=== PATIENT | female | born 1970 | race Caucasian/White ===

== ENCOUNTER 2019-07-17 19:42 | Emergency (ER) | payer MEDICAID ==
[~2019-07-17] VITALS: Ht 160 cm; Wt 54.5 kg
[~2019-07-17 19:42] MED LIST: NO HOME MEDS
[2019-07-17] MEDS ORDERED: morphine 2 MG/ML inj. syringe IV ONE (20:30)
[2019-07-17] MEDS ORDERED: LIDOcaine 2% 10ml TOPICAL JELLY (Urojet) MM ONE (20:40)
--- NOTE | 2019-07-17 20:51 | NUR ---
CHAPERONED AND ASSISTED ZOILA BROCK FOR UROJET APPLICATION AND PT CLEAN UP SECONDARY TO BOWEL MOVEMENT
[2019-07-17] MEDS ORDERED: LIDOcaine 2% 10ml TOPICAL JELLY (Urojet) TP ONE (21:20)
--- NOTE | 2019-07-17 21:43 | NUR ---
CHAPERONED AND ASSISTED ZOILA BROCK WITH SHARP PLACEMENT
[2019-07-17 22:54] LABS: CLARITY,URINE TURBID (Clear); COLOR,URINE YELLOW (Yellow); GLUCOSE, URINE NEGATIVE (Neg); KETONES,URINE NEGATIVE (Neg); LEUKOCYTE ESTERASE ,URINE LARGE (Neg); NITRITES, URINE POSITIVE (Neg); OCCULT BLOOD,URINE LARGE (Neg); PH,URINE 7.5 (4.8-8.0); PROTEIN,URINE 30 mg/dl (Neg); UROBILINOGEN,URINE 0.2 E.U/dL (0.2-1.0)
[2019-07-17 22:59] LABS: UA COLLECTION TYPE FOLEY CATH
[2019-07-17 23:01] LABS: WBC,URINE TNTC /HPF (0-4)
[2019-07-17 23:02] LABS: AMORPHOUS PHOSPHATES 3+; BACTERIA,URINE 3+ /HPF (Neg); RBC,URINE 50-100 /HPF (0-2); SQUAMOUS EPITHELIAL CELL,UR FEW /LPF (FEW); WBC CLUMPS,URINE MODERATE /HPF (NEGATIVE)
--- NOTE | 2019-07-17 23:06 | NUR ---
~1000ml urine output from horne cath
[2019-07-17] MEDS ORDERED: SULF1TAB49 PO (23:12)
[2019-07-17] MEDS ORDERED: sulfamethoxazole/trimethoprim DS (800/160mg) tablet PO ONE (23:20)
[2019-07-17 23:49] VITALS: BP 102/65
== END 2019-07-17 23:40 | disposition home or self-care (01) ==
LOC: ER 19:43
DX: S37.30XA Unspecified injury of urethra, initial encounter (principal); T83.098A Other mechanical complication of other urinary catheter, initial encounter; N39.0 Urinary tract infection, site not specified; Z87.820 Personal history of traumatic brain injury; Z88.0 Allergy status to penicillin; Z88.8 Allergy status to other drugs, medicaments and biological substances; X58.XXXA Exposure to other specified factors, initial encounter; Y93.89 Activity, other specified; Y92.89 Other specified places as the place of occurrence of the external cause; Y99.9 Unspecified external cause status
CPT/HCPCS: 51702; 81001; 87077; 87088; 87186; 96374; 99285; J2270

== ENCOUNTER 2019-11-05 21:44 | Inpatient (IN) | payer MEDICAID ==
[~2019-11-05] VITALS: Ht 160 cm; Wt 50.0 kg
[2019-11-05 22:40] LABS: BASOPHILS % (AUTO) 0.5 % (0-1); EOSINOPHILS # (AUTO) 0.1 X10'3 (0-0.9); EOSINOPHILS % (AUTO) 0.5 % (0-6); HEMOGLOBIN 13.1 g/dl (12.0-16.0); LYMPHOCYTES # (AUTO) 3.5 X10'3 (1.1-4.8); LYMPHOCYTES % (AUTO) 16.3 % (21-51); MEAN CORPUSCULAR HEMOGLOBIN 29.1 PG (27.0-31.0); MEAN CORPUSCULAR HGB CONC 32.7 g/dL (33.0-36.5); MEAN CORPUSCULAR VOLUME 88.8 FL (78-98); MEAN PLATELET VOLUME 6.8 FL (7.4-10.4); MONOCYTES # (AUTO) 0.3 X10'3 (0-0.9); MONOCYTES % (AUTO) 1.4 % (2-12); NEUTROPHILS # (AUTO) 17.2 X10'3 (1.8-7.7); NEUTROPHILS % (AUTO) 81.3 % (42-75); PLATELET COUNT 638 X10'3 (140-440); RED CELL DISTRIBUTION WIDTH 14.8 % (11.5-14.5); WHITE BLOOD COUNT 21.2 X10'3 (4.5-11.0)
[2019-11-05 22:41] LABS: BASOPHILS # (AUTO) 0.1 X10'3 (0-0.2)
[2019-11-05 22:43] LABS: ALANINE AMINOTRANSFERASE 32 U/L (12-78); ALBUMIN 2.8 G/DL (3.4-5.0); ALBUMIN/GLOBULIN RATIO 0.5 (1.1-1.5); ALKALINE PHOSPHATASE 201 IU/L (46-116); ANION GAP 10 (8-16); ASPARTATE AMINO TRANSFERASE 20 U/L (10-37); BILIRUBIN,TOTAL 0.4 MG/DL (0.1-1.0); BLOOD UREA NITROGEN 12 MG/DL (7-18); BUN/CREATININE RATIO 13.6 (6.6-38.0); CALCIUM 8.9 MG/DL (8.5-10.1); CHLORIDE 101 MMOL/L (99-107); CREATININE 0.88 MG/DL (0.40-0.90); GLUCOSE 95 MG/DL (70-104); LIPASE 183 U/L (73-393); POTASSIUM 4.4 MMOL/L (3.5-5.1); SODIUM 133 MMOL/L (135-145); TOTAL CARBON DIOXIDE 21.8 MMOL/L (24-32); TOTAL PROTEIN 8.5 G/DL (6.4-8.2); eGFR 68 ML/MIN
[2019-11-05 22:53] LABS: URINE HCG NEGATIVE (NEG)
[2019-11-05] MEDS ORDERED: CefTRIAXone/D5W-Rocephin 1gm 50 ML IV ONE (22:55)
[2019-11-05] MEDS ORDERED: normal saline 1000ML IV soln IVB ONE (22:55)
[2019-11-05 22:56] LABS: CLARITY,URINE CLOUDY (Clear); COLOR,URINE RED (Yellow); GLUCOSE, URINE NEGATIVE (Neg); KETONES,URINE NEGATIVE (Neg); LEUKOCYTE ESTERASE ,URINE MODERATE (Neg); NITRITES, URINE NEGATIVE (Neg); OCCULT BLOOD,URINE LARGE (Neg); PH,URINE 7.5 (4.8-8.0); PROTEIN,URINE 100 mg/dl (Neg)
[2019-11-05 22:58] LABS: PLATELET ESTIMATE INCREASED; TOTAL CELLS COUNTED 100
[2019-11-05 22:59] LABS: UA COLLECTION TYPE STRAIGHT CATH
[2019-11-05 23:03] LABS: BACTERIA,URINE 2+ /HPF (Neg); RBC,URINE TNTC /HPF (0-2); SQUAMOUS EPITHELIAL CELL,UR FEW /LPF (FEW)
[2019-11-05] MEDS ORDERED: iohexol 300mg/ml 100ml inj. ONE (23:04)
[2019-11-05 23:09] LABS: MAGNESIUM 2.3 MG/DL (1.5-2.4)
[2019-11-06] VITALS (19 sets, daily range): BP systolic 74–117; BP diastolic 39–59
[2019-11-06] MEDS ORDERED: magnesium hydroxide 30ml (MOM) UD suspension PO PRN (00:25)
[2019-11-06] MEDS ORDERED: HYDROcodone/acetaminophen 5mg/325mg tablet PO PRN (00:25)
[2019-11-06] MEDS ORDERED: acetaminophen 325mg tablet PO PRN ×2 (00:25)
[2019-11-06] MEDS ORDERED: morphine 2 MG/ML inj. syringe IV PRN ×2 (00:25→18:30)
[2019-11-06] MEDS ORDERED: mag hydrox/Alum hydrox/simeth 30ml oral suspension PO PRN (00:25)
[2019-11-06] MEDS ORDERED: ondansetron/PF 4mg/2ml inj IV PRN ×2 (00:25→18:30)
[2019-11-06] MEDS: normal saline 1000ml 1,000 ML IV SCH ×3 (01:13→14:11)
[2019-11-06] MEDS ORDERED: ketorolac trometh. 30mg/ml inj. IV ONE (01:15)
--- NOTE | 2019-11-06 02:10 | NUR ---
PATIENT ADMITTED TO ROOM 356B FROM ER FOR ACUTE PYELONEPHRITIS. PLACED COMFORTABLE IN BED. VITAL SIGNS TAKEN AND RECORDED.
--- NOTE | 2019-11-06 06:30 | NUR ---
Patient report given, questions answered & plan of care reviewed with REHANA BROCK.
--- NOTE | 2019-11-06 06:33 | NUR ---
Patient in room JAI 356B. I have received report from LESLYE GAVIN RN and had the opportunity to ask questions and assume patient care.
[2019-11-06] MEDS ORDERED: normal saline 1000ml 1,000 ML IV ONE ×3 (08:05→20:05)
[2019-11-06] MEDS ORDERED: potassium CL 10mEq/100ml bag 100 ML IV PRN (09:15)
[2019-11-06] MEDS ORDERED: magnesium 4gm in 100ml NS 100 ML IV PRN (09:15)
[2019-11-06] MEDS ORDERED: potassium Cl 20 mEq SR tablet PO PRN ×2 (09:15)
[2019-11-06] MEDS ORDERED: magnesium Cl slow-release 64mg tablet PO PRN (09:15)
[2019-11-06] MEDS ORDERED: CefTRIAXone/D5W-Rocephin 1gm 50 ML IV SCH ×2 (10:00→20:00)
--- NOTE | 2019-11-06 10:00 | NUR ---
reviewed student nurse charting
[2019-11-06 10:38] LABS: PARTIAL THROMBOPLASTIN TIME 31 SECONDS (22-32)
[2019-11-06] MEDS: HYDROcodone/acetaminophen 10/325mg tab PO PRN (11:31)
--- NOTE | 2019-11-06 15:52 | NUR ---
POSITIVE BLOOD CULTURE IN IV START GRAM POSITIVE COCCI IN PAIRS AND CHAINS AT 15 HOURS IN ANAEROBIC BOTTLE, [id number]
[2019-11-06] MEDS ORDERED: fentaNYL/PF 50MCG/1 ML 2ML syringe ONE (16:32)
[2019-11-06] MEDS ORDERED: midazolam 2 mg/2 ml injection ONE (16:32)
[2019-11-06] MEDS ORDERED: iohexol 300 MG/1 ML 50ml polymer ONE (16:33)
[2019-11-06] MEDS ORDERED: proCHLORperazine 10 MG/2 ml inj IV PRN (18:30)
[2019-11-06] MEDS ORDERED: ringers solution, lacted 1,000 ML IV SCH (18:30)
[2019-11-06] MEDS ORDERED: meperidine/PF 25mg/ml syringe IV PRN ×3 (18:30)
[2019-11-06] MEDS ORDERED: morphine 4 MG/ML inj SYRINge IV PRN (18:30)
--- NOTE | 2019-11-06 18:33 | NUR ---
Patient in room JAI 340. I have received report from Alberta BROCK and had the opportunity to ask questions and assume patient care.
[2019-11-06] MEDS ORDERED: sugammadex 200mg/2ml injection IV ONE (18:41)
[2019-11-06] MEDS ORDERED: phenylephrine 10mg/ml inj. ONE (18:44)
[2019-11-06] MEDS ORDERED: neostigmine methylsulfate 1 MG/ML 10ml vial ONE (18:44)
[2019-11-06] MEDS ORDERED: glycopyrrolate 0.2mg/ml inj ONE (18:44)
[2019-11-06] MEDS ORDERED: propofol inj 20 ML IV ONE (18:44)
[2019-11-06] MEDS ORDERED: ondansetron/PF 4mg/2ml inj ONE (18:44)
[2019-11-06] MEDS ORDERED: LIDOcaine 2% (20mg/ml) 5ml vial ONE (18:44)
[2019-11-06] MEDS ORDERED: rocuronium 10mg/ml inj IV ONE (18:44)
[2019-11-06] MEDS ORDERED: dexamethasone sod phosphate 4mg/ml inj. ONE (18:44)
--- NOTE | 2019-11-06 18:46 | NUR ---
Received from OR via , accompanied by Anesthesiologist DR MARIE and report given by Anesthesiolgist. AWAKENS TO VOICE. VITALS STABLE. BP A LITTLE LOW GIVING 500CC FLUID BOLUS PER ANESTHESIA. REGINALD PAIN. SHARP WITH CLEAR URINE.
--- NOTE | 2019-11-06 19:07 | NUR ---
Problems reprioritized. Patient report given, questions answered & plan of care reviewed with DELMY WILSON.
--- NOTE | 2019-11-06 19:10 | NUR ---
POSITIVE BLOOD CULTURE FROM LEFT ARM GRAM POSITIVE COCCI IN PAIRS AND SHORT CHAINS AT 19 HOURS IN AEROBIC BOTTLE, [id number]. DR TIDWELL
--- NOTE | 2019-11-06 19:46 | NUR ---
Report called to receiving nurse. Transferred via BED Belongings . Special Issues communicated to receiving nurse. AWAKE AND ORIENTED. VITALS STABLE. REGINALD PAIN. TO SURGICAL RM 356B AT THIS TIME.
[2019-11-06] MEDS: K and/or MAG REPLACEMENT MC SCH (20:00)
--- NOTE | 2019-11-06 20:00 | NUR ---
Patient in room JAI 356. I have received report from Cecily BROCK and had the opportunity to ask questions and assume patient care.
[2019-11-06] MEDS: cefepime 2g/NS 100ml ADVANTAGE 100 ML IV SCH (21:37)
[2019-11-07] VITALS (9 sets, daily range): BP systolic 74–108; BP diastolic 37–65
[2019-11-07] MEDS ORDERED: nicotine 21mg patch - 24 hr TD SCH (05:30)
[2019-11-07 05:53] LABS: ALBUMIN 1.8 G/DL (3.4-5.0); ANION GAP 9 (8-16); BLOOD UREA NITROGEN 13 MG/DL (7-18); BUN/CREATININE RATIO 17.8 (6.6-38.0); CALCIUM 7.9 MG/DL (8.5-10.1); CHLORIDE 109 MMOL/L (99-107); CREATININE 0.73 MG/DL (0.40-0.90); GLUCOSE 132 MG/DL (70-104); MAGNESIUM 1.9 MG/DL (1.5-2.4); POTASSIUM 4.4 MMOL/L (3.5-5.1); SODIUM 140 MMOL/L (135-145); TOTAL CARBON DIOXIDE 21.6 MMOL/L (24-32); eGFR 85 ML/MIN
[2019-11-07 06:06] LABS: BASOPHILS # (AUTO) 0.1 X10'3 (0-0.2); BASOPHILS % (AUTO) 0.4 % (0-1); EOSINOPHILS % (AUTO) 0 % (0-6); HEMATOCRIT 31.5 % (35.0-45.0); LYMPHOCYTES # (AUTO) 2.3 X10'3 (1.1-4.8); LYMPHOCYTES % (AUTO) 9.1 % (21-51); MEAN CORPUSCULAR HEMOGLOBIN 28.2 PG (27.0-31.0); MEAN CORPUSCULAR HGB CONC 31.6 g/dL (33.0-36.5); MEAN CORPUSCULAR VOLUME 89.3 FL (78-98); MEAN PLATELET VOLUME 7.5 FL (7.4-10.4); MONOCYTES # (AUTO) 1.3 X10'3 (0-0.9); MONOCYTES % (AUTO) 4.9 % (2-12); NEUTROPHILS # (AUTO) 21.9 X10'3 (1.8-7.7); NEUTROPHILS % (AUTO) 85.6 % (42-75); PLATELET COUNT 722 X10'3 (140-440); RED BLOOD COUNT 3.52 X10'6 (4.20-5.60); RED CELL DISTRIBUTION WIDTH 15.1 % (11.5-14.5)
[2019-11-07 06:12] LABS: WHITE BLOOD COUNT 25.6 X10'3 (4.5-11.0)
--- NOTE | 2019-11-07 06:32 | NUR ---
Problems reprioritized. Patient report given, questions answered & plan of care reviewed with Sindy BROCK.
--- NOTE | 2019-11-07 06:32 | NUR ---
Patient in room JAI 356. I have received report from DELMY Jackson and had the opportunity to ask questions and assume patient care.
[2019-11-07 07:40] LABS: PLATELET ESTIMATE INCREASED; TOTAL CELLS COUNTED 100
[2019-11-07] MEDS: K and/or MAG REPLACEMENT MC SCH ×2 (08:00→19:30)
[2019-11-07] MEDS: nicotine 21mg patch - 24 hr TD SCH (08:07)
[2019-11-07] MEDS: cefepime 2g/NS 100ml ADVANTAGE 100 ML IV SCH ×2 (08:07→19:36)
[2019-11-07] MEDS: normal saline 1000ml 1,000 ML IV SCH ×3 (08:13→21:15)
[2019-11-07] MEDS: morphine 2 MG/ML inj. syringe IV PRN ×3 (09:25→21:27)
[2019-11-07] MEDS: VANCOMYCIN 750MG IV in NS 250 ML IV SCH ×2 (12:03→23:20)
--- NOTE | 2019-11-07 13:15 | NUR ---
Pt C/o of IV site redness and itching, SOB and general feeling unwell. suspected reaction to Vancomycin first dose. Stopped infusion and paged Dr Gordon.
[2019-11-07] MEDS ORDERED: diphenhydrAMINE 50 mg/ml inj IV ONE (13:40)
--- NOTE | 2019-11-07 17:00 | NUR ---
Stewart catheter DCed with no complications, pt tolerated procedure well.
--- NOTE | 2019-11-07 18:32 | NUR ---
Problems reprioritized. Patient report given, questions answered & plan of care reviewed with DELMY Jackson.
--- NOTE | 2019-11-07 18:47 | NUR ---
Patient in room JAI 356. I have received report from Sindy BROCK and had the opportunity to ask questions and assume patient care.
[2019-11-08] VITALS: BP 117/70
[2019-11-08] MEDS: morphine 2 MG/ML inj. syringe IV PRN ×4 (04:17→23:08)
[2019-11-08 05:44] LABS: ALBUMIN 1.9 G/DL (3.4-5.0); ANION GAP 10 (8-16); BLOOD UREA NITROGEN 13 MG/DL (7-18); BUN/CREATININE RATIO 17.3 (6.6-38.0); CALCIUM 7.9 MG/DL (8.5-10.1); CHLORIDE 110 MMOL/L (99-107); CREATININE 0.75 MG/DL (0.40-0.90); GLUCOSE 87 MG/DL (70-104); MAGNESIUM 1.9 MG/DL (1.5-2.4); PHOSPHORUS 3.6 MG/DL (2.3-4.5); POTASSIUM 3.8 MMOL/L (3.5-5.1); SODIUM 144 MMOL/L (135-145); TOTAL CARBON DIOXIDE 24.4 MMOL/L (24-32); eGFR 82 ML/MIN
[2019-11-08 05:56] LABS: BASOPHILS # (AUTO) 0.1 X10'3 (0-0.2); BASOPHILS % (AUTO) 0.5 % (0-1); EOSINOPHILS # (AUTO) 0.1 X10'3 (0-0.9); EOSINOPHILS % (AUTO) 0.9 % (0-6); HEMATOCRIT 31.5 % (35.0-45.0); HEMOGLOBIN 10.4 g/dl (12.0-16.0); LYMPHOCYTES # (AUTO) 6.9 X10'3 (1.1-4.8); LYMPHOCYTES % (AUTO) 47.5 % (21-51); MEAN CORPUSCULAR HEMOGLOBIN 29.9 PG (27.0-31.0); MEAN CORPUSCULAR HGB CONC 33.1 g/dL (33.0-36.5); MEAN CORPUSCULAR VOLUME 90.2 FL (78-98); MEAN PLATELET VOLUME 7.2 FL (7.4-10.4); MONOCYTES # (AUTO) 1.5 X10'3 (0-0.9); MONOCYTES % (AUTO) 10.5 % (2-12); NEUTROPHILS # (AUTO) 5.9 X10'3 (1.8-7.7); NEUTROPHILS % (AUTO) 40.6 % (42-75); PLATELET COUNT 795 X10'3 (140-440); RED CELL DISTRIBUTION WIDTH 15.4 % (11.5-14.5); WHITE BLOOD COUNT 14.6 X10'3 (4.5-11.0)
--- NOTE | 2019-11-08 06:16 | NUR ---
Patient in room JAI 356. I have received report from DELMY Jackson and had the opportunity to ask questions and assume patient care.
--- NOTE | 2019-11-08 06:19 | NUR ---
patient stated she had a recent pressure wound on her sacrum/coccyx. Patient has a trapeze bed and is able to turn herself independently. I educated the patient on the importance of turning positions at least every two hours and taking pressure off that area. will continue to monitor
--- NOTE | 2019-11-08 06:41 | NUR ---
Problems reprioritized. Patient report given, questions answered & plan of care reviewed with Sindy BROCK.
[2019-11-08 07:30] VITALS: BP 118/66
[2019-11-08 07:57] LABS: TOTAL CELLS COUNTED 100
[2019-11-08 07:58] LABS: LARGE PLATELETS FEW; PLATELET ESTIMATE INCREASED; TOXIC GRANULATION 1+
[2019-11-08 08:00] VITALS: BP_SYST 113; BP_SYST 119; BP_DIAS 61; BP_DIAS 66
[2019-11-08] MEDS: K and/or MAG REPLACEMENT MC SCH ×2 (08:00→20:00)
[2019-11-08] MEDS: cefepime 2g/NS 100ml ADVANTAGE 100 ML IV SCH (08:15)
[2019-11-08] MEDS: heparin, porcine 5000 units/ml vial SQ SCH ×2 (08:15→20:33)
[2019-11-08] MEDS: nicotine 21mg patch - 24 hr TD SCH (08:16)
[2019-11-08] MEDS: normal saline 1000ml 1,000 ML IV SCH ×2 (08:28→20:33)
[2019-11-08] MEDS: VANCOMYCIN 750MG IV in NS 250 ML IV SCH ×2 (10:54→23:06)
[2019-11-08 11:00] VITALS: BP 113/61
[2019-11-08 18:00] VITALS: BP 120/55
--- NOTE | 2019-11-08 18:05 | NUR ---
Problems reprioritized. Patient report given, questions answered & plan of care reviewed with DELMY Jackson.
--- NOTE | 2019-11-08 18:42 | NUR ---
Patient in room JAI 345. I have received report from Sindy BROCK and had the opportunity to ask questions and assume patient care.
[2019-11-08 20:00] VITALS: BP 120/55
[2019-11-08] MEDS ORDERED: cefepime inj 2 GM in normal saline 100ml IV soln 100 ML IV SCH (20:31)
[2019-11-08] MEDS: lactobacillus rhamnosus 10,000 MMU CELLS/CAPSULE PO SCH (20:34)
[2019-11-08] MEDS ORDERED: VANCOMYCIN LEVEL IV ONE (22:30)
[2019-11-09] VITALS: BP 117/55
--- NOTE | 2019-11-09 06:20 | NUR ---
Patient in room JAI 356B. I have received report from DELMY WILSON and had the opportunity to ask questions and assume patient care.
--- NOTE | 2019-11-09 06:34 | NUR ---
Problems reprioritized. Patient report given, questions answered & plan of care reviewed with Alberta BROCK.
[2019-11-09 07:00] VITALS: BP 116/67
[2019-11-09 07:16] LABS: HEMOGLOBIN 10.4 g/dl (12.0-16.0); MEAN CORPUSCULAR HEMOGLOBIN 29.6 PG (27.0-31.0)
[2019-11-09 07:18] LABS: HEMATOCRIT 31.1 % (35.0-45.0); MEAN CORPUSCULAR HGB CONC 33.3 g/dL (33.0-36.5); MEAN CORPUSCULAR VOLUME 88.9 FL (78-98); PLATELET COUNT 852 X10'3 (140-440); RED CELL DISTRIBUTION WIDTH 14.6 % (11.5-14.5); WHITE BLOOD COUNT 13.5 X10'3 (4.5-11.0)
[2019-11-09 07:49] LABS: ALBUMIN 1.8 G/DL (3.4-5.0); ANION GAP 9 (8-16); BLOOD UREA NITROGEN 10 MG/DL (7-18); BUN/CREATININE RATIO 17.9 (6.6-38.0); CALCIUM 7.8 MG/DL (8.5-10.1); CHLORIDE 109 MMOL/L (99-107); CREATININE 0.56 MG/DL (0.40-0.90); GLUCOSE 77 MG/DL (70-104); MAGNESIUM 1.7 MG/DL (1.5-2.4); PHOSPHORUS 3.8 MG/DL (2.3-4.5); POTASSIUM 3.6 MMOL/L (3.5-5.1); SODIUM 143 MMOL/L (135-145); TOTAL CARBON DIOXIDE 24.9 MMOL/L (24-32); eGFR > 90 ML/MIN
[2019-11-09 07:54] LABS: TOTAL CELLS COUNTED 100
[2019-11-09 07:55] LABS: PLATELET ESTIMATE INCREASED
[2019-11-09] MEDS: K and/or MAG REPLACEMENT MC SCH (08:00)
[2019-11-09] MEDS: lactobacillus rhamnosus 10,000 MMU CELLS/CAPSULE PO SCH (08:41)
[2019-11-09] MEDS: nicotine 21mg patch - 24 hr TD SCH (08:42)
[2019-11-09] MEDS: heparin, porcine 5000 units/ml vial SQ SCH (08:42)
[2019-11-09] MEDS: normal saline 1000ml 1,000 ML IV SCH (08:44)
[2019-11-09 11:00] VITALS: BP 122/69
[2019-11-09] MEDS ORDERED: vancomycin/NS 1 GM ADD-VANTAGE 250 ML IV SCH (11:00)
[2019-11-09] MEDS ORDERED: LINE600T12 PO (13:15)
[2019-11-09] MEDS ORDERED: LACT1CAP26 PO (13:15)
[2019-11-09] MEDS: HYDROcodone/acetaminophen 10/325mg tab PO PRN (13:26)
--- NOTE | 2019-11-09 16:00 | NUR ---
PATIENT STABLE AND APPROPRIATE FOR DISCHARGE, IV TAKEN OUT, ALL BELONGINGS SENT WITH PATIENT, EDUCATION GIVEN, PATIENT TAKEN TO LOBBY IN PERSONAL WHEELCHAIR TO AN AWAITING CAR WHERE FAMILY MEMBER WILL TAKE PATIENT HOME
[2019-11-10] MEDS ORDERED: VANCOMYCIN LEVEL IV ONE (22:30)
== END 2019-11-09 16:00 | disposition home or self-care (01) | DRG 720 ==
LOC: ER 21:45 → ED HOLD 11-06 00:23 → SUR 3N 11-06 02:03
PROVIDERS: ADMIT Internal Medicine; ATTEND Family Medicine
PROC: 0T778DZ Dilation of Left Ureter with Intraluminal Device, Via Natural or Artificial Opening Endoscopic (ICD-10-PCS; 2019-11-06)
PROC: 0TCB8ZZ Extirpation of Matter from Bladder, Via Natural or Artificial Opening Endoscopic (ICD-10-PCS; principal; 2019-11-06 17:41)
DX: A41.9 Sepsis, unspecified organism (principal); B02.9 Zoster without complications; F17.210 Nicotine dependence, cigarettes, uncomplicated; G82.20 Paraplegia, unspecified; N13.6 Pyonephrosis; N13.9 Obstructive and reflux uropathy, unspecified; Z87.442 Personal history of urinary calculi; N21.0 Calculus in bladder
CPT/HCPCS: 36415; 69200; 71045; 74177; 76000; 80048; 80053; 80202; 81001; 81025; 82948; 83605; 83690; 83735; 84100; 84145; 85007; 85025; 85610; 85730; 87040; 87077; 87081; 87088; 87186; 93005; 93306; 96365; 99285; A4338; A4402; A4618; C1758; C1769; C2617; C9399; G0378; J0692; J0696; J1100; J1200; J1644; J1885; J2001; J2250; J2270; J2370; J2405; J2704; J2710; J3010; J3370; J3490; J7030; J7050; Q9967

== ENCOUNTER 2019-11-09 19:13 | Inpatient (IN) | payer MEDICAID ==
[~2019-11-09] VITALS: Ht 160 cm; Wt 54.5 kg
[~2019-11-09 19:13] MED LIST changes: +LACT1CAP26 PO; +LINE600T12 PO
[2019-11-09] MEDS ORDERED: linezolid 600mg/300ml PREMIX 300 ML IV SCH (19:20)
[2019-11-09] MEDS ORDERED: linezolid 600mg/300ml PREMIX 300 ML IV ONE (19:25)
[2019-11-09] MEDS: K and/or MAG REPLACEMENT MC SCH (20:00)
[2019-11-09] MEDS ORDERED: potassium CL 10mEq/100ml bag 100 ML IV PRN ×2 (20:00)
[2019-11-09] MEDS ORDERED: magnesium 2GM in 50ml NS 50 ML IV PRN (20:00)
[2019-11-09] MEDS ORDERED: ondansetron/PF 4mg/2ml inj IV PRN (20:00)
[2019-11-09] MEDS ORDERED: potassium Cl 20 mEq SR tablet PO PRN ×2 (20:00)
[2019-11-09] MEDS ORDERED: acetaminophen 325mg tablet PO PRN (20:00)
[2019-11-09] MEDS ORDERED: magnesium Cl slow-release 64mg tablet PO PRN (20:00)
[2019-11-09] MEDS ORDERED: magnesium 4gm in 100ml NS 100 ML IV PRN (20:00)
--- NOTE | 2019-11-09 20:36 | NUR ---
PAGER ID: [phone] MESSAGE: Mimi rm2 ER has zvylox ordered by the ER MD. Do you wish for the patint to recieve this medication or just the rosio Jimenez RN [phone]
[2019-11-09] MEDS: vancomycin/NS 1 GM ADD-VANTAGE 250 ML IV SCH (21:00)
[2019-11-09] MEDS: normal saline 1000ml 1,000 ML IV SCH (21:00)
--- NOTE | 2019-11-10 01:25 | NUR ---
I have received report from Barbara, ED RN and had the opportunity to ask questions and assume patient care.
[2019-11-10 02:02] VITALS: BP 121/61
[2019-11-10 06:14] LABS: EOSINOPHILS # (AUTO) 0.2 X10'3 (0-0.9); HEMATOCRIT 32.5 % (35.0-45.0); HEMOGLOBIN 10.6 g/dl (12.0-16.0); NEUTROPHILS # (AUTO) 7.8 X10'3 (1.8-7.7); RED CELL DISTRIBUTION WIDTH 14.7 % (11.5-14.5)
[2019-11-10 06:16] LABS: BASOPHILS # (AUTO) 0.1 X10'3 (0-0.2); BASOPHILS % (AUTO) 0.4 % (0-1); EOSINOPHILS % (AUTO) 1.6 % (0-6); LYMPHOCYTES % (AUTO) 35.1 % (21-51); MEAN CORPUSCULAR HEMOGLOBIN 28.9 PG (27.0-31.0); MEAN CORPUSCULAR HGB CONC 32.7 g/dL (33.0-36.5); MEAN CORPUSCULAR VOLUME 88.2 FL (78-98); MEAN PLATELET VOLUME 7.1 FL (7.4-10.4); MONOCYTES # (AUTO) 1.2 X10'3 (0-0.9); MONOCYTES % (AUTO) 8.3 % (2-12); NEUTROPHILS % (AUTO) 54.6 % (42-75); RED BLOOD COUNT 3.68 X10'6 (4.20-5.60); WHITE BLOOD COUNT 14.3 X10'3 (4.5-11.0)
[2019-11-10 06:20] LABS: ALBUMIN 2.1 G/DL (3.4-5.0); ANION GAP 5 (8-16); BLOOD UREA NITROGEN 8 MG/DL (7-18); BUN/CREATININE RATIO 12.3 (6.6-38.0); CALCIUM 8.4 MG/DL (8.5-10.1); CHLORIDE 107 MMOL/L (99-107); CREATININE 0.65 MG/DL (0.40-0.90); GLUCOSE 89 MG/DL (70-104); MAGNESIUM 1.9 MG/DL (1.5-2.4); POTASSIUM 3.9 MMOL/L (3.5-5.1); SODIUM 141 MMOL/L (135-145); TOTAL CARBON DIOXIDE 28.6 MMOL/L (24-32); eGFR > 90 ML/MIN
[2019-11-10 06:21] LABS: PLATELET COUNT 1022 X10'3 (140-440)
--- NOTE | 2019-11-10 06:21 | NUR ---
Patient in room JAI 356. I have received report from Valeria BROCK and had the opportunity to ask questions and assume patient care.
--- NOTE | 2019-11-10 06:43 | NUR ---
Problems reprioritized. Patient report given, questions answered & plan of care reviewed with DELMY Napier.
[2019-11-10] MEDS: K and/or MAG REPLACEMENT MC SCH ×2 (07:59→19:28)
[2019-11-10 08:00] VITALS: BP 113/48
[2019-11-10] MEDS: vancomycin/NS 1 GM ADD-VANTAGE 250 ML IV SCH (08:02)
--- NOTE | 2019-11-10 10:55 | NUR ---
Initial: Pt readmit with UTI/sepsis for abx tx following discharge 11/08 d/t inability to receive Zyvox through insurance per H&P. Pt currently on a heart healthy diet, pending documentation of PO intake though documented with 75-100% PO intake on regular diet at last admit 11/05-11/08 meeting estimated nutrient needs. Good PO intake is expected given recent good PO intake. LBM 11/04, currently with no bowel care. D/w dietary to send prunes and prune juice with next meal to assist with bowel regularity. Will continue to follow and monitor need for further nutrition intervention. Recommendations: 1) Advance to regular diet as medically indicated given no significant PMH indicating need for heart healthy diet 2) Monitor need for ONS/additional protein 3) Routine bowel care 4) Scaled weights per rx Addendum: 11/10/19 at [address] Amended: Links added.
[2019-11-10] MEDS: aspirin 81mg tab.chew PO SCH (11:49)
--- NOTE | 2019-11-10 11:58 | NUR ---
BAKARI in place Addendum: 11/10/19 at 1200 by Nitin SEGURA Amended: Links added.
[2019-11-10 12:13] VITALS: BP 128/67
[2019-11-10] MEDS: normal saline 1000ml 1,000 ML IV SCH ×2 (15:56→19:29)
--- NOTE | 2019-11-10 17:23 | NUR ---
Student documentation: I have reviewed all interventions, assessments performed and documentation charted by Velma CROW . Student Medication Administration: For all medication-pass' in this shifts time frame, all medication were reviewed, dispensed, administered and documented per hospital policy by Velma CROW .
--- NOTE | 2019-11-10 18:16 | NUR ---
Problems reprioritized. Patient report given, questions answered & plan of care reviewed with Kamila BROCK.
--- NOTE | 2019-11-10 18:55 | NUR ---
Received report from primary care nurse Quyen BROCK. Assumed patient care. Patient is resting with relaxed and unlabored respirations on room air. Call light and items of frequent use within reach. Will continue to monitor for changes.
[2019-11-10 19:00] VITALS: BP 123/64
[2019-11-10] MEDS: VANCOMYCIN 750MG IV in NS 250 ML IV SCH (19:19)
[2019-11-10] MEDS: nicotine 14mg patch - 24hr TD SCH (20:00)
[2019-11-11] VITALS: BP 118/61
--- NOTE | 2019-11-11 00:55 | NUR ---
Paged regarding patients urinary retention. Bladder scan with more than 400mL. Order obtained to straight cath q6h.
[2019-11-11 05:17] LABS: EOSINOPHILS # (AUTO) 0.2 X10'3 (0-0.9); MEAN PLATELET VOLUME 6.9 FL (7.4-10.4); MONOCYTES # (AUTO) 1.6 X10'3 (0-0.9); NEUTROPHILS # (AUTO) 9.9 X10'3 (1.8-7.7)
[2019-11-11 05:20] LABS: BASOPHILS # (AUTO) 0.2 X10'3 (0-0.2); BASOPHILS % (AUTO) 1.4 % (0-1); EOSINOPHILS % (AUTO) 1.2 % (0-6); HEMATOCRIT 34.6 % (35.0-45.0); HEMOGLOBIN 11.4 g/dl (12.0-16.0); LYMPHOCYTES # (AUTO) 5.4 X10'3 (1.1-4.8); LYMPHOCYTES % (AUTO) 31.2 % (21-51); MEAN CORPUSCULAR HEMOGLOBIN 29.1 PG (27.0-31.0); MEAN CORPUSCULAR HGB CONC 32.8 g/dL (33.0-36.5); MEAN CORPUSCULAR VOLUME 88.6 FL (78-98); MONOCYTES % (AUTO) 9.1 % (2-12); NEUTROPHILS % (AUTO) 57.1 % (42-75); RED BLOOD COUNT 3.91 X10'6 (4.20-5.60); RED CELL DISTRIBUTION WIDTH 14.9 % (11.5-14.5); WHITE BLOOD COUNT 17.4 X10'3 (4.5-11.0)
[2019-11-11 05:24] LABS: PLATELET COUNT 1191 X10'3 (140-440)
[2019-11-11 05:27] LABS: ALBUMIN 2.3 G/DL (3.4-5.0); ANION GAP 7 (8-16); BLOOD UREA NITROGEN 6 MG/DL (7-18); BUN/CREATININE RATIO 9.1 (6.6-38.0); CALCIUM 8.4 MG/DL (8.5-10.1); CHLORIDE 108 MMOL/L (99-107); CREATININE 0.66 MG/DL (0.40-0.90); GLUCOSE 91 MG/DL (70-104); MAGNESIUM 2.1 MG/DL (1.5-2.4); POTASSIUM 4.3 MMOL/L (3.5-5.1); SODIUM 142 MMOL/L (135-145); TOTAL CARBON DIOXIDE 27.4 MMOL/L (24-32); eGFR > 90 ML/MIN
--- NOTE | 2019-11-11 05:27 | NUR ---
Critical platelet of 1191 reported to MD Thomas. No new orders.
[2019-11-11] MEDS: normal saline 1000ml 1,000 ML IV SCH (05:37)
--- NOTE | 2019-11-11 06:10 | NUR ---
Reported off to Mary RN. Patient resting with relaxed and unlabored respirations on room air. Call light and items of frequent use within reach.
--- NOTE | 2019-11-11 06:43 | NUR ---
Patient in room JAI 356. I have received report from DELMY Treviño and had the opportunity to ask questions and assume patient care.
[2019-11-11] MEDS: K and/or MAG REPLACEMENT MC SCH (08:00)
[2019-11-11] MEDS: nicotine 14mg patch - 24hr TD SCH (08:01)
[2019-11-11 08:08] VITALS: BP 108/51
[2019-11-11] MEDS: aspirin 81mg tab.chew PO SCH (09:14)
[2019-11-11] MEDS: VANCOMYCIN 750MG IV in NS 250 ML IV SCH (09:15)
[2019-11-11] MEDS ORDERED: linezolid 600mg tablet PO ONE (11:00)
--- NOTE | 2019-11-11 11:36 | NUR ---
Straight Cath at 0800. 300 ml of clear yellow urine collected. Pt had continues to have inc episodes.
[2019-11-11 12:00] VITALS: BP 134/73
--- NOTE | 2019-11-11 13:40 | NUR ---
Pt threatening to leave AMA. Informed.
--- NOTE | 2019-11-11 13:46 | NUR ---
PAGER ID: [phone] MESSAGE: Nedra MEd/Surg. [phone]. PT: Balbir. RM: 356-B. Pt requesting to be D/C home today. Do you think that's possible? pls call After explaining the consequences of leaving AMA. Pt requested to be D/C home today. Dr Roldan states he can't discharge pt home because of her ABX tx.
--- NOTE | 2019-11-11 14:09 | NUR ---
Pt left the floor AMA. IV removed and AMA form signed by pt. informed. PAGER ID: [phone] MESSAGE: Nedra med/surg. Shan Mcgregor. RM: 356-A. Pt decided to leave AMA. signed form.
[2019-11-11] MEDS ORDERED: linezolid 600mg tablet PO SCH (20:00)
[2019-11-12] MEDS ORDERED: VANCOMYCIN LEVEL IV ONE (07:30)
== END 2019-11-11 14:09 | disposition left against medical advice (07) | DRG 720 ==
LOC: ER 19:14 → ED HOLD 20:00 → SUR 3N 11-10 01:50
PROVIDERS: ADMIT Internal Medicine; ATTEND Family Medicine
DX: A41.81 Sepsis due to Enterococcus (principal); G82.20 Paraplegia, unspecified; N12 Tubulo-interstitial nephritis, not specified as acute or chronic; N20.1 Calculus of ureter; D47.3 Essential (hemorrhagic) thrombocythemia; Z53.29 Procedure and treatment not carried out because of patient's decision for other reasons; N31.9 Neuromuscular dysfunction of bladder, unspecified; F17.210 Nicotine dependence, cigarettes, uncomplicated; Z88.0 Allergy status to penicillin; Z90.81 Acquired absence of spleen; Z88.8 Allergy status to other drugs, medicaments and biological substances
CPT/HCPCS: 36415; 80048; 83735; 85025; 87081; 99285; G0378; J3370; J7030; J7050

== ENCOUNTER 2020-10-13 01:24 | Inpatient (IN) | payer MEDICAID ==
[~2020-10-13] VITALS: Ht 160 cm; Wt 58.0 kg
[2020-10-13] VITALS (27 sets, daily range): BP systolic 74–122; BP diastolic 44–64
[~2020-10-13 01:24] MED LIST changes: -LINE600T12 PO; -NO HOME MEDS
[2020-10-13] MEDS ORDERED: normal saline 1000ML IV soln IVB ONE (01:40)
[2020-10-13] MEDS ORDERED: ondansetron/PF 4mg/2ml inj IV ONE (01:40)
[2020-10-13 02:26] LABS: CLARITY,URINE SLIGHTLY CLOUDY (Clear); COLOR,URINE AMBER (Yellow); GLUCOSE, URINE NEGATIVE (Neg); KETONES,URINE 15 mg/dl (Neg); LEUKOCYTE ESTERASE ,URINE SMALL (Neg); NITRITES, URINE POSITIVE (Neg); OCCULT BLOOD,URINE TRACE-INTACT (Neg); PROTEIN,URINE 30 mg/dl (Neg)
[2020-10-13 02:36] LABS: UA COLLECTION TYPE STRAIGHT CATH
[2020-10-13] MEDS ORDERED: ketorolac tromethamine 15mg/ml inj. IV ONE (02:40)
[2020-10-13 02:43] LABS: BACTERIA,URINE 4+ /HPF (Neg); MUCUS STRANDS NONE SEEN /LPF (Neg); SQUAMOUS EPITHELIAL CELL,UR FEW /LPF (FEW)
[2020-10-13 02:45] LABS: RBC,URINE 0-2 /HPF (0-2); WBC,URINE 20-30 /HPF (0-4)
[2020-10-13 03:52] LABS: BASOPHILS % (AUTO) 0.1 % (0-1); EOSINOPHILS % (AUTO) 0 % (0-6); HEMATOCRIT 39.6 % (35.0-45.0); HEMOGLOBIN 12.9 g/dl (12.0-16.0); LYMPHOCYTES # (AUTO) 2.1 X10'3 (1.1-4.8); LYMPHOCYTES % (AUTO) 5.7 % (21-51); MEAN CORPUSCULAR HEMOGLOBIN 29.2 PG (27.0-31.0); MEAN CORPUSCULAR HGB CONC 32.6 g/dL (33.0-36.5); MEAN CORPUSCULAR VOLUME 89.6 FL (78-98); MEAN PLATELET VOLUME 7.3 FL (7.4-10.4); MONOCYTES # (AUTO) 5.1 X10'3 (0-0.9); NEUTROPHILS # (AUTO) 29.4 X10'3 (1.8-7.7); NEUTROPHILS % (AUTO) 80.2 % (42-75); PLATELET COUNT 569 X10'3 (140-440); RED BLOOD COUNT 4.42 X10'6 (4.20-5.60); RED CELL DISTRIBUTION WIDTH 14.7 % (11.5-14.5)
[2020-10-13 04:00] LABS: WHITE BLOOD COUNT 36.7 X10'3 (4.5-11.0)
--- NOTE | 2020-10-13 04:00 | NUR ---
Patient's BP up to 95/60 no more complaints of chest heaviness.
[2020-10-13 04:06] LABS: ALANINE AMINOTRANSFERASE 38 U/L (12-78); ALBUMIN 2.8 G/DL (3.4-5.0); ALBUMIN/GLOBULIN RATIO 0.7 (1.1-1.5); ALKALINE PHOSPHATASE 111 IU/L (46-116); ANION GAP 12 (8-16); ASPARTATE AMINO TRANSFERASE 18 U/L (10-37); BILIRUBIN,TOTAL 0.5 MG/DL (0.1-1.0); BLOOD UREA NITROGEN 13 MG/DL (7-18); BUN/CREATININE RATIO 15.7 (6.6-38.0); CALCIUM 7.8 MG/DL (8.5-10.1); CHLORIDE 103 MMOL/L (99-107); CREATININE 0.83 MG/DL (0.40-0.90); GLUCOSE 104 MG/DL (70-104); POTASSIUM 3.7 MMOL/L (3.5-5.1); SODIUM 138 MMOL/L (135-145); TOTAL CARBON DIOXIDE 23.5 MMOL/L (24-32); eGFR 73 ML/MIN
[2020-10-13 04:09] LABS: LIPASE < 50 U/L (73-393); TROPONIN I < 0.04 NG/ML (0.0-0.05)
[2020-10-13] MEDS ORDERED: levoFLOXACIN-Levaquin 500mg/D5 100 ML IV ONE (04:15)
[2020-10-13] MEDS ORDERED: normal saline 1000ml 1,000 ML IV SCH (04:35)
[2020-10-13] MEDS ORDERED: CefTRIAXone/D5W-Rocephin 1gm 50 ML IV ONE (05:00)
[2020-10-13] MEDS ORDERED: fentaNYL/PF 50MCG/1 ML 2ML syringe IV ONE (05:30)
[2020-10-13] MEDS ORDERED: magnesium 4gm in 100ml NS 100 ML IV PRN (05:35)
[2020-10-13] MEDS ORDERED: acetaminophen 325mg tablet PO PRN (05:35)
[2020-10-13] MEDS ORDERED: potassium Cl 40MEQ/1/2NS 520ml 520 ML IV PRN ×2 (05:35)
[2020-10-13] MEDS ORDERED: magnesium Cl slow-release 64mg tablet PO PRN (05:35)
[2020-10-13] MEDS ORDERED: potassium Cl 20 mEq SR tablet PO PRN ×2 (05:35)
[2020-10-13] MEDS: normal saline 1000ml 1,000 ML IV SCH ×3 (05:35→23:11)
[2020-10-13] MEDS ORDERED: magnesium 2GM in 50ml NS 50 ML IV PRN (05:35)
[2020-10-13] MEDS ORDERED: morphine 2 MG/ML inj. syringe IV PRN ×2 (05:35→17:10)
[2020-10-13] MEDS ORDERED: ondansetron/PF 4mg/2ml inj IV PRN ×2 (05:35→17:10)
[2020-10-13] MEDS ORDERED: NO HOME MEDS (06:15)
[2020-10-13 06:27] LABS: PLATELET ESTIMATE INCREASED; TOTAL CELLS COUNTED 100
[2020-10-13] MEDS: K and/or MAG REPLACEMENT MC SCH ×2 (08:00→20:00)
--- NOTE | 2020-10-13 09:31 | NUR ---
CLARIFIED WITH THE PHARMACY REGARDING FLOMAX ORDER ORDER SAY PO HS , PER DOMENICA THE ORDER IS ONE TIME DOSE RGT NOW AND THE TIME FOR NIGHT TIME.
[2020-10-13] MEDS: tamsulosin 0.4mg capsule PO SCH (09:35)
--- NOTE | 2020-10-13 12:58 | NUR ---
Stewart catheter F16 inserted using sterile techniques, patient tolerated the procedure well. Urine noted was very cloudy. Patient already got UA done at ER and was started on Rocephin IV
--- NOTE | 2020-10-13 13:03 | NUR ---
Paged Dr. Fletcher PAGER ID: [phone] MESSAGE: Surgical Shiva BROCK ext [phone]. RE: Malika Mcgregor. Patent already been here. OR said she is scheduled for surgery @ 4pm. She is pain, order for Morphine is only 1mg Q4hr PRN. Can we increase the dose? Addendum: 10/13/20 at 1304 by Shiva Boss RN Correction: 2pm
[2020-10-13] MEDS ORDERED: morphine 4 MG/ML inj SYRINge IV PRN ×2 (13:15→17:10)
[2020-10-13] MEDS ORDERED: methylnaltrexone br 12mg/0.6ml inj***SubQ only SQ PRN (13:40)
[2020-10-13] MEDS ORDERED: mineral oil 133ml enema RC PRN (13:40)
[2020-10-13] MEDS ORDERED: magnesium hydroxide 30ml (MOM) UD suspension PO PRN (13:40)
--- NOTE | 2020-10-13 14:13 | NUR ---
I called pharmacy to request for Relistor as it was not available.
[2020-10-13] MEDS: piperacillin/tazo 4.5gm/100ml 100 ML IV SCH (15:04)
[2020-10-13] MEDS ORDERED: iohexol 300 MG/1 ML 50ml polymer ONE (16:55)
[2020-10-13] MEDS ORDERED: proCHLORperazine 10 MG/2 ml inj IV PRN (17:10)
[2020-10-13] MEDS ORDERED: meperidine/PF 25mg/ml syringe IV PRN ×3 (17:10)
[2020-10-13] MEDS ORDERED: ringers solution, lacted 1,000 ML IV SCH (17:10)
[2020-10-13] MEDS ORDERED: sevoflurane 250ml liquid IH ONE (17:13)
[2020-10-13] MEDS ORDERED: propofol inj 20 ML IV ONE (17:17)
[2020-10-13] MEDS ORDERED: midazolam 1 mg/ML 2ml injection ONE (17:17)
[2020-10-13] MEDS ORDERED: fentaNYL/PF 50MCG/1 ML 2ML syringe ONE (17:17)
--- NOTE | 2020-10-13 17:55 | NUR ---
Received from OR via BED , accompanied by Anesthesiologist DR. GONSALVES and report given by Anesthesiologist. PATIENT WAKING UP, NO S/S OF PAIN, BP LOW-MAP 55, FOOT OF BED UP, IV FLUIDS RUNNING, AWAKENS EASILY-ABLE TO ANSWER QUESTIONS- DR. AHUJA, PT PARAPLEGIC SINCE 2019, SCDS ON, 22G PIV TO RUE, 20G TO LUE. F/C REPLACED IN OR.
--- NOTE | 2020-10-13 18:24 | NUR ---
Problems reprioritized. Patient report given, questions answered & plan of care reviewed with Iliana BROCK.
--- NOTE | 2020-10-13 18:25 | NUR ---
Patient in room JAI 345. I have received report from DELMY Shannon and had the opportunity to ask questions and assume patient care.
--- NOTE | 2020-10-13 19:45 | NUR ---
PT STABLE, BP CONTINUES TO BE LOW BUT PT A/OX4 ASYMPTOMATIC, HOLDING PT LONGER TO WAIT FOR BP TO COME UP, PT HAS HAD FLUID AND CRACKERS ALONG WITH CONTINUED FLUIDS VIA IV
--- NOTE | 2020-10-13 20:55 | NUR ---
PATIENT HAS MET ALL CRITERIA FOR TRANSFER TO THE SURGICAL FLOOR. VSS, BP 100/60, NS @100ML/HR VIA PIV 20G TO L HAND, DENIES PAIN, PARA SINCE 2019, SENSATION TO MID THIGHS, F/C DRAINING PINK TINGED URINE. BED LOW, CALL LIGHT PRESENT AND 2 RAILS UP. AIDE PRESENT TO ACCEPT CARE OF PATIENT AND REPORT HAS BEEN CALLED TO RICHARD-ALL QUESTIONS ANSWERED TO ACCEPTING RN.
[2020-10-13] MEDS: morphine 2 MG/ML inj. syringe IV PRN (22:26)
--- NOTE | 2020-10-13 22:39 | NUR ---
Dr Wynn checking in, monitor urine output this PM and BP notify hosp if bolus needed. Pt complains of SOB yet is talking very quickly to brother and other visitors. NO evidence of SOB. Will continue to monitor!
--- NOTE | 2020-10-13 23:00 | NUR ---
Patient had BP of 75/52 and had complaint of chest heaviness. Paged Dr. Thomas patient was ordered a bolus of N/S and an EKG.
[2020-10-14] VITALS (8 sets, daily range): BP systolic 89–134; BP diastolic 49–74
[2020-10-14] MEDS: docusate sod 100mg capsule PO SCH ×3 (00:10→20:32)
[2020-10-14] MEDS: tamsulosin 0.4mg capsule PO SCH ×2 (00:10→20:32)
[2020-10-14] MEDS: piperacillin/tazo 4.5gm/100ml 100 ML IV SCH ×3 (00:11→16:00)
[2020-10-14] MEDS: enoxaparin 40mg/0.4ml syringe SUBCUT SCH ×2 (00:12→20:32)
[2020-10-14] MEDS: normal saline 1000ml 1,000 ML IV SCH ×6 (02:16→14:00)
[2020-10-14] MEDS: morphine 2 MG/ML inj. syringe IV PRN ×3 (04:26→20:31)
[2020-10-14] MEDS ORDERED: CefTRIAXone/D5W-Rocephin 1gm 50 ML IV SCH (05:00)
[2020-10-14 05:53] LABS: BASOPHILS # (AUTO) 0.1 X10'3 (0-0.2); BASOPHILS % (AUTO) 0.5 % (0-1); EOSINOPHILS # (AUTO) 0.1 X10'3 (0-0.9); EOSINOPHILS % (AUTO) 0.6 % (0-6); HEMATOCRIT 31.2 % (35.0-45.0); HEMOGLOBIN 10.4 g/dl (12.0-16.0); LYMPHOCYTES # (AUTO) 4.8 X10'3 (1.1-4.8); LYMPHOCYTES % (AUTO) 22.5 % (21-51); MEAN CORPUSCULAR HEMOGLOBIN 29.4 PG (27.0-31.0); MEAN CORPUSCULAR HGB CONC 33.4 g/dL (33.0-36.5); MEAN CORPUSCULAR VOLUME 88.2 FL (78-98); MEAN PLATELET VOLUME 7.5 FL (7.4-10.4); MONOCYTES # (AUTO) 2.7 X10'3 (0-0.9); MONOCYTES % (AUTO) 12.6 % (2-12); NEUTROPHILS # (AUTO) 13.6 X10'3 (1.8-7.7); NEUTROPHILS % (AUTO) 63.8 % (42-75); PLATELET COUNT 479 X10'3 (140-440); RED BLOOD COUNT 3.54 X10'6 (4.20-5.60); RED CELL DISTRIBUTION WIDTH 15.2 % (11.5-14.5); WHITE BLOOD COUNT 21.3 X10'3 (4.5-11.0)
[2020-10-14 05:58] LABS: ANION GAP 9 (8-16); BLOOD UREA NITROGEN 13 MG/DL (7-18); BUN/CREATININE RATIO 17.6 (6.6-38.0); CALCIUM 7.2 MG/DL (8.5-10.1); CHLORIDE 111 MMOL/L (99-107); CREATININE 0.74 MG/DL (0.40-0.90); GLUCOSE 98 MG/DL (70-104); SODIUM 140 MMOL/L (135-145); TOTAL CARBON DIOXIDE 19.6 MMOL/L (24-32); eGFR 83 ML/MIN
--- NOTE | 2020-10-14 06:17 | NUR ---
Problems reprioritized. Patient report given, questions answered & plan of care reviewed with DELMY Pinzon.
--- NOTE | 2020-10-14 06:56 | NUR ---
Patient in room JAI 345A. I have received report from DELMY RAMOS and had the opportunity to ask questions and assume patient care.
[2020-10-14] MEDS: K and/or MAG REPLACEMENT MC SCH ×2 (08:00→20:00)
[2020-10-14] MEDS ORDERED: ketorolac tromethamine 15mg/ml inj. IV PRN (09:10)
--- NOTE | 2020-10-14 18:44 | NUR ---
Patient in room JAI 345. I have received report from DELMY Pinzon and had the opportunity to ask questions and assume patient care.
--- NOTE | 2020-10-14 18:45 | NUR ---
Problems reprioritized. Patient report given, questions answered & plan of care reviewed with DELMY RAMOS.
[2020-10-14] MEDS: lactobacillus rhamnosus 10,000 MMU CELLS/CAPSULE PO SCH (20:32)
[2020-10-15] VITALS: BP 138/81
[2020-10-15] MEDS: piperacillin/tazo 4.5gm/100ml 100 ML IV SCH ×3 (00:35→11:27)
[2020-10-15] MEDS: normal saline 1000ml 1,000 ML IV SCH ×3 (00:35→11:28)
[2020-10-15 06:27] LABS: BASOPHILS # (AUTO) 0.1 X10'3 (0-0.2); BASOPHILS % (AUTO) 0.8 % (0-1); EOSINOPHILS # (AUTO) 0.2 X10'3 (0-0.9); EOSINOPHILS % (AUTO) 1.7 % (0-6); HEMATOCRIT 34.3 % (35.0-45.0); HEMOGLOBIN 10.9 g/dl (12.0-16.0); LYMPHOCYTES # (AUTO) 3.8 X10'3 (1.1-4.8); LYMPHOCYTES % (AUTO) 33.5 % (21-51); MEAN CORPUSCULAR HEMOGLOBIN 28.6 PG (27.0-31.0); MEAN CORPUSCULAR HGB CONC 31.8 g/dL (33.0-36.5); MEAN CORPUSCULAR VOLUME 89.7 FL (78-98); MEAN PLATELET VOLUME 7.7 FL (7.4-10.4); MONOCYTES # (AUTO) 1.5 X10'3 (0-0.9); NEUTROPHILS # (AUTO) 5.8 X10'3 (1.8-7.7); PLATELET COUNT 563 X10'3 (140-440); RED BLOOD COUNT 3.82 X10'6 (4.20-5.60); RED CELL DISTRIBUTION WIDTH 15.2 % (11.5-14.5); WHITE BLOOD COUNT 11.4 X10'3 (4.5-11.0)
--- NOTE | 2020-10-15 06:30 | NUR ---
Problems reprioritized. Patient report given, questions answered & plan of care reviewed with DELMY Davis.
[2020-10-15 06:53] LABS: ALBUMIN 2.1 G/DL (3.4-5.0); ANION GAP 10 (8-16); BLOOD UREA NITROGEN 11 MG/DL (7-18); BUN/CREATININE RATIO 15.7 (6.6-38.0); CALCIUM 7.8 MG/DL (8.5-10.1); CHLORIDE 112 MMOL/L (99-107); GLUCOSE 83 MG/DL (70-104); MAGNESIUM 2.2 MG/DL (1.5-2.4); POTASSIUM 4.4 MMOL/L (3.5-5.1); SODIUM 142 MMOL/L (135-145); TOTAL CARBON DIOXIDE 20.5 MMOL/L (24-32); eGFR 89 ML/MIN
[2020-10-15 07:00] VITALS: BP 116/71
--- NOTE | 2020-10-15 07:00 | NUR ---
Patient in room JAI 345. I have received report from Iliana BROCK and had the opportunity to ask questions and assume patient care.
[2020-10-15] MEDS: K and/or MAG REPLACEMENT MC SCH (08:00)
[2020-10-15] MEDS ORDERED: mineral oil 133ml enema RC ONE (09:50)
[2020-10-15] MEDS ORDERED: AMOX-580 PO (09:53)
[2020-10-15 11:06] VITALS: BP 122/75
[2020-10-15] MEDS: docusate sod 100mg capsule PO SCH (11:29)
[2020-10-15] MEDS: lactobacillus rhamnosus 10,000 MMU CELLS/CAPSULE PO SCH (11:30)
[2020-10-15] MEDS: morphine 2 MG/ML inj. syringe IV PRN (13:36)
--- NOTE | 2020-10-15 17:58 | NUR ---
patient seen by Dr leiva and Dr Fletcher is for discharge following CT . CT done all cares given BM x1. patient DC home via private car. prescription for norco given to patient. Antibiotics escript to patients pharmacy. IV x2 removed intact. All Dc instructions given to patient Stewart supplies given. Patient DC home via private car with friend [phone]
== END 2020-10-15 15:05 | disposition home health service (06) | DRG 720 ==
LOC: ER 01:25 → UNDOADMIN 05:32 → ED HOLD 05:32 → SUR 3N 11:10 → ED HOLD 11:10
PROVIDERS: ADMIT Internal Medicine; ATTEND Family Medicine
PROC: 0T778DZ Dilation of Left Ureter with Intraluminal Device, Via Natural or Artificial Opening Endoscopic (ICD-10-PCS; 2020-10-13)
PROC: BT1F1ZZ Fluoroscopy of Left Kidney, Ureter and Bladder using Low Osmolar Contrast (ICD-10-PCS; 2020-10-13)
PROC: 0TCB8ZZ Extirpation of Matter from Bladder, Via Natural or Artificial Opening Endoscopic (ICD-10-PCS; principal; 2020-10-13 17:13)
PROC: BW211ZZ Computerized Tomography (CT Scan) of Abdomen and Pelvis using Low Osmolar Contrast (ICD-10-PCS; 2020-10-15)
DX: A41.9 Sepsis, unspecified organism (principal); G82.20 Paraplegia, unspecified; I95.9 Hypotension, unspecified; F17.200 Nicotine dependence, unspecified, uncomplicated; K29.00 Acute gastritis without bleeding; K59.00 Constipation, unspecified; N13.6 Pyonephrosis; Z66 Do not resuscitate; B96.20 Unspecified Escherichia coli [E. coli] as the cause of diseases classified elsewhere; Z20.822 Contact with and (suspected) exposure to COVID-19; N21.0 Calculus in bladder; N13.9 Obstructive and reflux uropathy, unspecified; N31.9 Neuromuscular dysfunction of bladder, unspecified; Z87.442 Personal history of urinary calculi; Z90.81 Acquired absence of spleen; Z99.3 Dependence on wheelchair; Z88.8 Allergy status to other drugs, medicaments and biological substances
CPT/HCPCS: 36415; 74176; 74420; 80048; 80053; 81001; 82948; 83605; 83690; 83735; 84484; 85007; 85025; 87040; 87077; 87081; 87088; 87186; 87635; 93005; 96361; 96365; 96375; 99285; A4338; A4618; C1758; C1769; C2617; C9803; G0378; J0696; J1650; J1885; J1956; J2212; J2250; J2270; J2405; J2543; J2704; J3010; J7030; Q9967

== ENCOUNTER 2023-08-08 15:47 | Outpatient (CLI) | payer MEDICAID ==
[~2023-08-08 15:47] MED LIST changes: +AMOX-580 PO; -LACT1CAP26 PO
== END 2023-08-08 23:59 | disposition home or self-care (01) ==
LOC: RAD 15:47
PROVIDERS: ATTEND Student in an Organized Health Care Education/Training Program
DX: N20.0 Calculus of kidney (principal)
CPT/HCPCS: 76770